=== PATIENT | female | born 1995 | race Caucasian/White ===

== ENCOUNTER 2022-02-12 14:09 | Outpatient (CLI) | payer OTHER, SELFPAY ==
[2022-02-13 11:58] LABS: Strep B DNA Probe NEGATIVE (Negative)
== END 2022-02-12 14:10 | disposition home or self-care (01) ==
LOC: NFLDREF 14:09
PROVIDERS: PCP Family Medicine; Visit Provider Advanced Practice Midwife
DX: Z34.90 Encounter for supervision of normal pregnancy, unspecified, unspecified trimester (principal)
CPT/HCPCS: 87081; 87653

== ENCOUNTER 2022-03-20 14:12 | Outpatient (CLI) | payer OTHER, SELFPAY ==
[2022-03-20 14:28] VITALS: BP 130/79; PULSE 83; PULSE 85; TEMP 36.7; O2SAT 96
[2022-03-20 14:30] VITALS: BP 130/79; PULSE 87; RESP 14; TEMP 36.7; O2SAT 96
[2022-03-20 15:10] LABS: Amnisure Rom* Negative
--- NOTE | 2022-03-20 15:59 | PC.OBNST ---
NST Note NST Note Start: 03/20/22 14:16 Freq: ONCE Status: Active Protocol: Document 03/20/22 15:15 LP (Rec: 03/20/22 15:57 LP [id number]) NST Note 1 Para (# of births) 0 EDC 03/11/22 Gestational Age In Weeks & Days 41 Weeks & 2 Days Patient Presented with Complaint(s) of Other Other Complaints Sent over from clinic for NST and amnisure after 12/20 BPP and questionable SROM Reactive Yes Appropriate for Gestational Age Yes AMAURY Romero, RN Date 03/20/22 Reactive Yes Appropriate for Gestational Age Yes AMAURY Gtz, AMAURY Date 03/20/22 OB NST charge Yes Complete NST Note via Write Note Yes The provider's electronic signature indicates the NST is reactive/appropriate for gestational age. *Note to provider: If an addendum is required, open the patient's chart and click on the note under the Nurse/Allied Health tab.
--- NOTE | 2022-03-20 17:33 | W.PM.OBO ---
OB Outpatient HPI History of Present Illness History of Present Illness: Darlin is a 26 year old at 41 2/7 weeks gestation by LMP, [place] 03/11/2022, presents from clinic for rule out SROM and NST following BPP of 12/20. Baby moving naturally: Yes Bleeding: No Contractions: No Leaking fluid: Yes ([place] tinged discharge) Discharge: No Heartburn: No Back pain: No Meds Home Medications and Allergies Home Medications Medication Instructions Recorded Confirmed Type aspirin 81 mg tablet,delayed mg PO QDAY 01/17/22 03/12/22 History release epinephrine 0.3 mg/0.3 mL 0.3 mg IM .As Needed as needed PRN 01/17/22 03/12/22 History injection, auto-injector (EpiPen) prenat.vits,barbara,[id number] 1 tab PO QDAY 01/17/22 03/12/22 History Allergies Allergy/AdvReac Type Severity Reaction Status Date / Time chaudhry Allergy Severe Swelling Uncoded 03/12/22 12:56 of Lip/Tongue/Throat [facility] Medical History (Updated 03/20/22 @ 18:02 by Clarisa Jones CNM) Anxiety Migraines Pollen-food allergy Surgical History History of wisdom tooth extraction Family History (Updated 02/19/22 @ 13:29 by Clarisa Jones CNM) Mother Multiple sclerosis Father No problems noted. Social History Smoking Status: Never smoker History History 1 Elective abortions Para 0 Spontaneous abortions Hx # Term Pregnancies Ectopic pregnancies Hx # Pregnancies Multiple births Number of Living Children 0 OB - H&P: Exam Physical Exam Vital signs: Temp Pulse Resp BP Pulse Ox 98.1 F 87 14 130/79 96 03/20/22 14:30 03/20/22 14:30 03/20/22 14:30 03/20/22 14:30 03/20/22 14:30 Constitutional Constitutional: no acute distress Routine HEENT Exam Head: Present atraumatic Routine Neck Exam Neck: Present full ROM Detailed Labor and Delivery Exam Patient Gravid: yes Dilation (cm): 3 Effacement (%): 70 Cervix position: mid Consistency: soft Tachysystole: No Contraction intensity: Mild Comments: Membrane sweep with consent. Good bloody show. Fetus (Single) Station: -2 Heart Rate Baseline: 145 Monitor Accelerations: Present Monitor Decelerations: None Temporary Help Agency Referral Clerk Variability: Moderate (11-25) Routine Skin Exam Present intact Routine Neurological Exam Present alert and oriented X3 Routine Psychiatric Exam Present normal affect Labs Labs Laboratory Tests 03/20/22 Range/Units 14:29 Membrane Rupture Negative Assessment and Plan Assessment and plan (1) Post term : Status: Acute (2) Vaginal discharge during : Status: Acute Plan ASSESSMENT:? 26 at 41 2/7 weeks gestation? BPP w/ Reactive NST, score 8/10 Amnisure negative ? PLAN:? Discussed options with patient including IOL today, discharge and IOL later this week if no labor, or follow-up w/ NST in clinic. She elects IOL later this week. Membrane sweep today. IOL scheduled of Saturday03/23/22.
== END 2022-03-20 15:20 | disposition home or self-care (01) ==
LOC: OB OUT 14:13 → OB 14:15
PROVIDERS: PCP Family Medicine; Visit Provider Advanced Practice Midwife
DX: O48.0 Post-term pregnancy (principal)
CPT/HCPCS: 59025; 76819; 84112; 99213

== ENCOUNTER 2022-03-21 16:11 | Inpatient (IN) | payer OTHER, SELFPAY ==
[2022-03-21] VITALS (40 sets, daily range): BP systolic 85–134; BP diastolic 49–74; PULSE 66–92; RESP 16–20; TEMP 36.8–37.1; O2SAT 94–100; BMI 36.3
--- NOTE | 2022-03-21 15:49 | P.LDBA_ITS ---
Subjective History of Present Illness Narrative: Patient is being admitted to Labor and Delivery for early labor post term. She is a 26 year old at 41.3 weeks gestation. Her full history and physical was dictated by Jonny Jones CNM on 02/19/2022. Please see this for details. She present after having contractions that started around 0200 this morning. They intensified until about 0700 when they decreased in frequency. They gradually increased again and she present to L&D around 1300. At that time she was 4 cm/80%/-2. At 1500 she was 4-4.5cm/80%/-2. Options were reviewed with patient including laboring at home with or without morphine and Vistaril before discharge, reevaluated SVE in 1-2 hours, admit with pain and relaxation interventions and/or labor augmentation. She is choosing to be admitted. She would like to try hydrotherapy for relaxation at this time. : [place]. Baby: Girl. blood type:?O positive GBS negative 1. BMI 33.9. Recommended baby ASA d/t nullip and obesity 2. Genetic screening: Declined 09/04/21 3. First US: anechoic structure on left ovary (?cyst measuring 3.7 x 2.4 x 2.7 cm), JULIOCESAR inferier to GS (1.0 x 1.1 x 1.2 cm) 4. Possible Raynaud's.? Diagnosed at 17 weeks.? Recommend keeping hands warm.? If no improvement, will consider CCB. 5.? 10/25/2021:? On FAS:? Single left ventricular echogenic focus in the heart.? No other anatomic abnormalities were identified. ? --offered maternity 21 and level 2 ultrasound, the patient and her spouse declined. 6. Large for dates Growth ultrasound 01/04/2022:? SDP 6.4 cm, estimated weight 64th percentile. 7. Hx of Anxiety, no medications 8. Hx of migraines OB - H&P: Exam Physical Exam: Vital signs: Temp Pulse Resp BP 98.2 F 66 20 134/74 03/21/22 13:07 03/21/22 13:07 03/21/22 13:07 03/21/22 13:07 Constitutional: Constitutional: no acute distress Routine HEENT Exam: Head: Present normal inspection ENT: Present normal exam Routine Neck Exam: Neck: Present full ROM Routine Respiratory Exam: Respiratory: Present CTA bilaterally Routine Cardiovascular Exam: Cardiovascular: RRR Detailed Labor and Delivery Exam: Patient Gravid: yes Dilation (cm): 4 (4- 4.5 per RN exam) Effacement (%): 80 Cervix position: mid Contraction frequency (min): 3 (Q2-4 min) Tachysystole: No Contraction intensity: Moderate Fetus (Single): Station: -2 Heart Rate Baseline: 135 Monitor Accelerations: Present (frequent long accelerations. baby very active per pt report and palpation) Monitor Decelerations: None Diabetic Educator Variability: Moderate (11-25) (6-25) Routine Extremities Exam: Extremities: Present full ROM Routine Back/Spine/Pelvis Exam: Back/Spine: full ROM Routine Neurological Exam: Present alert and oriented X3 Routine Psychiatric Exam: Present normal affect and normal thought process OB - Problem Based A/P Additional Plan (1) Post term at 41 weeks gestation: Status: Acute Plan at 41.3 weeks gestation? GBS negative Uncomplicated ? ?? PLAN:? 1. Candidate for analgesia of choice. Planning unmedicated .?? 2. Anticipate ? 3. Expectant management at this time.? 4. IV when needed per unit policy 5. Intermittent monitoring at this time or per unit policy Delivery/Labor/Induction Plan Plan: expectant management
[2022-03-21 17:35] LABS: SARS PCR* Negative SARS-CoV-2 (Negative)
[2022-03-21] MEDS: LIDOCAINE 2% (PF) 5 ML VIAL EPIDURAL (18:51)
[2022-03-21] MEDS: ROPIVACAINE 0.2% 100 ml 100 ML 12 MG EPIDURAL (18:52)
[2022-03-21] MEDS: LACTATED RINGERS 1000 ML 1,000 ML 125 ML IV (18:55)
--- NOTE | 2022-03-21 19:04 | PM.ANBPRC ---
[facility] Medical History (Updated 03/21/22 @ 16:11 by Samreen Samaniego CNM) Anxiety Migraines Pollen-food allergy Surgical History History of wisdom tooth extraction Family History (Updated 02/19/22 @ 13:29 by Clarisa Jones CNM) Mother Multiple sclerosis Father No problems noted. Social History Smoking Status: Never smoker Meds Home Medications and Allergies Home Medications Medication Instructions Recorded Confirmed Type aspirin 81 mg tablet,delayed 81 mg PO QDAY 01/17/22 03/21/22 History release epinephrine 0.3 mg/0.3 mL 0.3 mg IM .As Needed as needed PRN 01/17/22 03/21/22 History injection, auto-injector (EpiPen) prenat.vits,barbara,[id number] 1 tab PO QDAY 01/17/22 03/21/22 History Allergies Allergy/AdvReac Type Severity Reaction Status Date / Time chaudhry Allergy Severe Swelling Uncoded 03/12/22 12:56 of Lip/Tongue/Throat Results Labs Labs: Laboratory Results - last 24 hr 03/21/22 16:00 SARS-CoV-2 (PCR) Negative SARS-CoV-2 Vital Signs Vital Signs: Last Vital Signs Temp 98.2 F 03/21/22 13:07 Pulse 78 03/21/22 18:59 Resp 20 03/21/22 13:07 BP 117/63 03/21/22 18:59 Pulse Ox 97 03/21/22 19:02 Weight: 108.4 kg Height: 172.72 cm Anesthesia Procedures Epidural Insertion Patient Location: OB Start Time: 18:00 Stop Time: 19:00 Start Date: 03/21/22 Stop Date: 03/21/22 Reason for Block: primary anesthetic Patient Position: sitting Performed By: Gamaliel Whelan Preanesthetic Checklist: IV checked, risks and benefits discussed, surgical consent, monitors and equipment checked, pre-op evaluation, timeout performed and anesthesia consent Prep: chlorhexidine gluconate Monitoring: blood pressure monitoring, conveyor monitor, continuous pulse oximetry and heart rate Approach: midline Vertebral Space: lumbar (1-5) Needle Type: Tuohy needle Injection Technique: continuous catheter Needle gauge: 17 Needle Length (cm): 10 cm Needle Insertion Depth (cm): 6 Catheter Gauge: 19 Catheter Type: multi-orifice Catheter at skin depth (cm): 12 Test Dose Result: negative and lidocaine 1.5% with epinephrine 1 to 200,000 Events: other
[2022-03-21] MEDS: PHENYLEPHRINE 100 MCG/ML SYRINGE IVP (21:19)
[2022-03-22] VITALS (72 sets, daily range): BP systolic 89–142; BP diastolic 49–86; PULSE 60–142; RESP 16; TEMP 36.6–37.2; O2SAT 97
[2022-03-22] MEDS: LACTATED RINGERS 1000 ML 1,000 ML 125 ML IV ×2 (02:43→10:27)
[2022-03-22] MEDS: ROPIVACAINE 0.2% 100 ml 100 ML 12 MG EPIDURAL ×2 (02:49→10:54)
--- NOTE | 2022-03-22 06:24 | PM.OBPNL ---
Pain Control Date Seen: 03/22/22 Pain control: tolerating well and epidural Comments: Patient had declined offer of Pitocin or AROM augmentation over night. Contractions had spaced apart to every 4-6 min. She is comfortable with an epidural and has been able to rest. SVE this morning is pretty much unchanged at 7-8cm from the evening check of 7 cm. Offered Pitocin or AROM augmentation again and she is agreeable to Pitocin augmentation. Contractions Monitor mode: External Contraction frequency: 4 (Q4-6 min) Contraction pattern: Regular Contraction intensity: Moderate Pelvic Exam Dilation (cm): 7-8 Effacement (%): 90 Station: -1 Fetus (Single) status: Category l Comments: Baseline 130, +accels, -decels, moderate variability Assessment and Plan Plan: begin Pitocin augmentation
[2022-03-22] MEDS: OXYTOCIN 30 unit/500 ML in NS 30 UNIT/500 ML BAG IVPB (06:36)
--- NOTE | 2022-03-22 09:39 | PM.OBPNL ---
Pain Control Date Seen: 03/22/22 Pain control: tolerating well and epidural Comments: Darlin is coping well with labor pain/contractions. She is currently being supported by her . Understands the current plan of care. Questions answered to her satisfaction. Reports concerns regarding: none. She would like to continue with epidural for comfort and pain management.?? Contractions Monitor mode: External Contraction frequency: 4 (Q4-6 min) Contraction pattern: Regular Contraction intensity: Moderate Pelvic Exam Comments: Last check was 7-8 cm. Pitocin started at 630 am. Fetus (Single) status: Category l Comments: Intact membranes Assessment and Plan Assessment: active labor Comments: ASSESSMENT:? 26 at 41 1/7 weeks gestation? complicated by:? Labor type: Spontaneous, Augmented, Active labor? Category 1 FHR pattern.?? Labor complicated by: Protracted Active phase. ? GBS neg? ? PLAN:? 1. Routine intrapartum cares as ordered. Continue with augmentation with Pitocin per protocol. 2. Monitoring per policy, continuous? 3. Epidural in place, continue for labor pain management. 4. Patient encouraged to reposition to promote physiologic labor and .? 5. Anticipate ?
--- NOTE | 2022-03-22 10:55 | PM.OBPNL ---
Pain Control Time Seen by Provider: 10:56 Date Seen: 03/22/22 Pain control: epidural Comments: Intrapartum Progress Note? Labor and Delivery? ? Subjective: Darlin is coping well with labor pain/contractions, with an epidural. Pt is a little anxious, awating the of her baby. She is currently being supported by Arron. Understands the current plan of care. Questions answered to her satisfaction. She would like to continue with epidural for comfort and pain management.?? Contractions Monitor mode: External Contraction frequency: 4 (Q4-6 min) Contraction pattern: Regular Contraction intensity: Moderate Pelvic Exam Dilation (cm): 8 Effacement (%): 90 Station: -1 Comments: Right sided cervix, bulging bag. AROMed with consent. Clear fluid. Fetus (Single) Amniotic Membrane Status: AROM status: Category l Assessment and Plan Pitocin rate (mU/min): 5 Assessment: active labor Plan: continue present management Comments: ASSESSMENT:? 26 at 41 1/7 weeks gestation? complicated by:? Labor type: Spontaneous, Augmented, Active labor? Category 1 FHR pattern.?? Labor complicated by: Protracted Active phase. ? GBS neg? ? PLAN:? 1. Routine intrapartum cares as ordered. Continue with augmentation with Pitocin per protocol. AROM discussed with pt, agreeable at this time. Clear fluid. 2. Monitoring per policy, continuous? 3. Epidural in place, continue for labor pain management. 4. Patient encouraged to reposition to promote physiologic labor and .? 5. Anticipate ?
[2022-03-22] MEDS: LIDOCAINE 1% MDV 20 ML INJECTION (16:53)
--- NOTE | 2022-03-22 17:49 | PM.OBPRCVD ---
Procedure Delivery date: 03/22/22 Procedure Done: Global Events: Other (Post term 41w 4d) Intrapartal Events: Labor Augmentation, Prolonged 2nd Stage >2.5 Hrs and Other (Protracted active phase) Delivery augmentation: rupture of membranes (clear fluid) and pitocin Delivery monitor: external FHT Route of delivery: Laceration description: Perineal - 2nd Degree (extends up right labia) Delivery repair: Vicryl (3.0 ) Estimated blood loss (mL): 812 (QBL) Anesthesia type: Epidural Disposition: floor Narrative: The patient is a 26 year-old G1 now P1 admitted on 03/21/2022 at 41 Weeks, 3 Days gestation for active labor.? Labor Analgesia:?Epidural ? Pitocin:? Yes for augmentation and AMSTL ? Labor onset:? 03/21/2022 @ 1600 ? Complete:? 03/22 @ 1310 ? Pushing:? 03/22 @ 1310 ? heart tones during second stage were Cat 1 with occasional Cat 2. ? Patient was admitted for active labor and progressed with augmentation. AROM at 1050 with clear fluid. Patient was complete at 1310 and pushing at 1310. of a viable female at 1640 in right tilt. Vertex delivered OA. No nuchal cord. Head slow to deliver, immediate concern for shoulder, not palpated, [place] and Superpubic pressure done to resolve shoulder dystocia of 40 seconds. Traction needed to deliver body. passed to mothers abdomen with a vigorous cry. Cord was clamped and cut at > 5 minutes. APGARS were 7 at one minute and 9 at five minutes respectively. Mouth was bulb suctioned. Intact placenta with a 3 vessel cord delivered spontaneously at 1649. Fundus firm. 2nd degree identified and repaired in typical fashion. QBL 812 cc, likely most from repair, some may be diluted from amniotic fluid. Mother and baby stable; mother plans to breastfeed. weight 10 lbs. Placenta delivered spontaneously and complete at 1649 with a 3 vessel cord. ? Mother and were stable after delivery. ? Lacerations:? 2nd degree perineal, repaired with 3.0 Vycril. ? Blood loss: 812 mL. Blood loss measurement type: QBL ? Sponge and needles counts are correct. [place] Infant Gender: Female presentation: vertex Placental Delivery Description: Spontaneous Cord Description: 3 Vessels total score - 1 minute: 7 total score - 5 minute: 8 OB Vag Delivery Procedures Additional Procedures ECV: No Cook Catheter Insertion: No NST: No D&C: No Laceration Repair: Yes Tubal Ligation : No Other: No
--- NOTE | 2022-03-22 18:26 | PM.OBPNL ---
Pain Control Time Seen by Provider: 13:00 Date Seen: 03/22/22 Pain control: epidural Comments: Darlin doing well with epidural, feeling urge to push. Slight anterior right lip felt with exam, attempted 2 practice pushes to see if it would retract. Unable to reduce, discussed high fowlers, pt agreeable. Contractions Monitor mode: External Contraction frequency: 2 (Q4-6 min) Contraction pattern: Regular Contraction intensity: Strong/Firm Pelvic Exam Dilation (cm): 9.5 Effacement (%): 100 Station: 0 Fetus (Single) Amniotic Membrane Status: AROM status: Category l Assessment and Plan Assessment: active labor Plan: continue present management Comments: ASSESSMENT:? 26 at 41 1/7 weeks gestation? complicated by:? Labor type: Spontaneous, Augmented, Active labor? Category 1 FHR pattern.?? Labor complicated by: Protracted Active phase. ? GBS neg? ? PLAN:? 1. Routine intrapartum cares as ordered. Continue with augmentation with Pitocin per protocol. High fowlers position, having intense urge to push. Pushing started with RN. [place] slight anterior cervix which was able to be retracted with pressure while pushing. 2. Monitoring per policy, continuous? 3. Epidural in place, continue for labor pain management. 4. Patient encouraged to reposition to promote physiologic labor and .? 5. Anticipate ?
[2022-03-22] MEDS: ONDANSETRON 2 MG/ML inj 4 MG IV (19:52)
[2022-03-22] MEDS: LACTATED RINGERS 1000 ML 1,000 ML 500 ML IV (19:52)
[2022-03-23 00:29] VITALS: BP 130/73; PULSE 92; RESP 16; TEMP 37; O2SAT 97
[2022-03-23 03:30] VITALS: BP 109/71; PULSE 88; RESP 16; TEMP 37; O2SAT 97
[2022-03-23] MEDS: IBUPROFEN 600 MG TABLET PO ×3 (04:05→17:20)
[2022-03-23] MEDS: LANOLIN CREAM 1 APPLIC TOPICAL (04:07)
[2022-03-23 07:34] LABS: Hemoglobin* 11.6 gm/dL (12.0-16.0)
--- NOTE | 2022-03-23 07:51 | P.OBPN_ITS ---
OB - PN:Subj Subjective Date Seen: 03/23/22 Patient comments OB post-: no complaints, pain well controlled, tolerating diet and flatus present [place] status: and doing well [place] feeding status: exclusively Narrative: Day 1:? Vaginal Delivery at 41 and 4/7 weeks.? ?? Complications:? non? The patient feels well.? The pain is well controlled with current medications.? She has no new complaints.? Urinary output is adequate and she is voiding without difficulty.? Has a good appetite, is tolerating a general diet, is passing flatus, and has not had a bowel movement.? Has?small amount of rubra lochia.? She is and feels that it is going good. She is ambulating well.? OB - PN: Obj Exam Physical Exam: Vital signs: Temp Pulse Resp BP Pulse Ox O2 Del Method 98.6 F 88 16 109/71 97 03/23/22 03:30 03/23/22 03:30 03/23/22 03:30 03/23/22 03:30 03/23/22 03:30 03/23/22 03:30 Constitutional: Constitutional: no acute distress Routine HEENT Exam: Head: Present normal inspection Eye: Present normal appearance Routine Neck Exam: Neck: Present full ROM Routine Respiratory Exam: Respiratory: Present CTA bilaterally Routine Cardiovascular Exam: Cardiovascular: Present RRR Routine Abdominal Exam: Fundus: Present firm Routine Exam: Patient deferred: external exam (denies concerns) and perineal exam Routine Back/Spine/Pelvis Exam: Back/Spine: Present full ROM Routine Neurological Exam: Neurological: Present alert and oriented X3 Routine Psychiatric Exam: Psychiatric: Present normal affect and normal thought process OB - PN: Obj Data Labs Labs: Laboratory Results - last 24 hr 03/23/22 07:05 Hgb 11.6 L OB - PN: A/P Vaginal Delivery Assessment and Plan (1) Post term at 41 weeks gestation: Status: Acute Plan 26 year old on day 1.? 1. Routine cares.? 2. Anticipate discharge tomorrow.? Plan day: 1 Plan: routine care
[2022-03-23] MEDS: DOCUSATE SODIUM 100 MG CAPSULE PO (07:57)
[2022-03-23 07:59] VITALS: BP 107/73; PULSE 78; RESP 15; TEMP 36.4
[2022-03-23 14:30] VITALS: BP 104/67; PULSE 79; RESP 16; TEMP 36.6
[2022-03-23 23:17] VITALS: BP 114/76; PULSE 79; RESP 16; TEMP 36.6; O2SAT 97
[2022-03-23] MEDS: ACETAMINOPHEN 500 MG TABLET 1000 MG PO (23:20)
[2022-03-24 07:57] VITALS: BP 116/76; PULSE 69; RESP 16; TEMP 36.3; O2SAT 98
[2022-03-24] MEDS: IBUPROFEN 600 MG TABLET PO (08:02)
[2022-03-24] MEDS: DOCUSATE SODIUM 100 MG CAPSULE PO (08:03)
[2022-03-24] MEDS: ACETAMINOPHEN 500 MG TABLET 1000 MG PO (10:20)
--- NOTE | 2022-03-24 11:50 | PM.OBDSVD1 ---
DS: Providers Provider Time Seen by Provider: 11:51 Date Seen: 03/24/22 Date of admission: 03/21/22 16:11 Primary care physician: Adelaide Dewey MD Admitting Clinician: Samreen Samaniego CNM Attending Physician on discharge: David Salas MD Date of Discharge: 03/24/22 DS: Diagnosis Discharge Diagnosis (1) Post term at 41 weeks gestation: Status: Acute (2) Perineal laceration during delivery, condition: Status: Acute Exam Const: Vital Signs, click to edit/add: Vital Signs - 24 hr 03/23/22 14:30 03/23/22 23:17 03/24/22 07:57 Temperature 97.9 F 97.9 F 97.4 F L Pulse Rate [Pulse Oximeter] 79 79 69 Respiratory Rate 16 16 16 Blood Pressure [Le ft Arm] 104/67 114/76 116/76 Pulse Oximetry 97 98 Oxygen Delivery Me thod Room Air Room Air Documenting provider has reviewed patient's vital signs: yes Common normals: no apparent distress, healthy appearing and well nourished General appearance: cooperative, comfortable, well kempt and well developed Nutritional appearance: obese HENMT: Common normals: normocephalic Head and scalp: normocephalic Neck & C-Spine: Common normals: full ROM General: normal visual inspection Resp: Common normals: normal respiratory effort Effort & inspection: able to speak in complete sentences Cardio: Common normals: regular rate Rate: regular rate GI: Common normals: soft to palpation Palpation: soft Extremity: Common normals: normal to inspection Neuro: Common normals: CN's II-XII intact bilaterally Psych: Common normals: mental status grossly normal, cooperative and affect normal Appearance: well kempt Attitude: calm OB - DS: Summary Hospital Course Hospital Course: Darlin is a 26 year old now P 1001 who was admitted to the Center on 03/21/22 for IOL for postdates, and 6/8 BPP (no gross movement). She had AROM and Pitocin, with epidural for pain relief. On 03.22.2022, she gave to a viable female Lindsay by vaginal delivery. Baby weighed 10lb 0oz at . A second degree perineal laceration was repaired. QBL was 812mL. the patient has done well. Pain is controlled with ibuprofen and acetaminophen. Lochia is moderate, and decreasing. Bladder and bowel functions are normal. Her mood is stable. Baby is well. Peripartum Data complications: none Gender: Female Discharge Plan: Home Status at Discharge Functional status at discharge: independent ambulation Overall status at discharge: patient is progressing back to baseline Discharge Plan Discharge Disposition: Home, Self-Care Date of Admission: 03/21/22 16:11 Attending Provider on Discharge: David Salas Primary Care Provider: Adelaide Dewey Condition: Stable Anticipated Discharge Date/Time: 03/24/22 12:02 Discharge Medications: New acetaminophen 500 mg Tablet 1,000 mg PO Q6H PRN (Reason: pain refractory to ibuprofen) Qty: 1 0RF ibuprofen 600 mg Tablet 600 mg PO Q6H PRNQty: 1 0RF Lanolin (HPA) 100 % Cream 1 applic topical Q1H PRNQty: 7 0RF pramoxine 1 % Foam 1 applic topical QID PRNQty: 15 0RF Continued prenat.vits,barbara,[id number] Tablet 1 tab PO QDAY epinephrine [EpiPen] 0.3 mg/0.3 mL auto-injector 0.3 mg IM .As Needed as needed PRN Discontinued aspirin 81 mg tablet,delayed release (DR/EC) 81 mg PO QDAY Discharge Orders: Discharge Order (Routine); Ordered 03/24/22 Ordered By: David Salas Patient Education: OB Over the Counter Medication Information, OB Vaginal/Breast Feeding Activity Level: Activity as Tolerated Discharge Diet: High Fiber Follow Up Appointments: Adelaide Dewey MD [Primary Care Provider] - Forms: Hello! Messenger Info Instructions Discharge Comments: follow up at [facility] as needed, and for routine visit with CNM in approximately 6w
== END 2022-03-24 13:35 | disposition home or self-care (01) | DRG 807 ==
LOC: OB OUT 16:14 → OB 16:14
PROVIDERS: Advanced Practice Midwife; Admitting Provider Advanced Practice Midwife; PCP Family Medicine; Visit Provider Advanced Practice Midwife
DX: O48.0 Post-term pregnancy (principal); Z37.0 Single live birth; O66.0 Obstructed labor due to shoulder dystocia; O36.63X0 Maternal care for excessive fetal growth, third trimester, not applicable or unspecified; O70.1 Second degree perineal laceration during delivery; Z3A.41 41 weeks gestation of pregnancy
CPT/HCPCS: 01967; 36415; 85018; 87635; 99213; A9270; J2370; J2405; J2795; J3010; J7120

== ENCOUNTER 2022-03-30 11:03 | Outpatient (CLI) | payer OTHER, SELFPAY ==
--- NOTE | 2022-03-30 14:03 | P.LACCB_ITS ---
Consult Note - Mom Date of Visit Date of visit: 03/30/22 automotive consultant: Kari Aramubla Visit Code: Visit Patient's Information Phone number: [phone] : 1 Para: 1 Allergies chaudhry Allergy (Severe, Uncoded 03/12/22 12:56) Swelling of Lip/Tongue/Throat Mother's Medical History: Medical History (Updated 03/28/22 @ 00:01 by ) Anxiety Migraines Pollen-food allergy Post term at 41 weeks gestation Delivery Information Delivery type: Vaginal Weeks Gestation: 41.4 Gestational Age: LGA Weight: 4.536 kg Discharge Weight: 4.284 kg Baby's Information Baby's Age at Visit: 8 days Baby's Provider or Clinic: Dr. Anderson Jaundice: No Reason for Consult Reason for Consult: painful latch Past Experience Past Experience: No Current Frequency of Day Feedings: every 2 hours Frequency of Night Feedings: every 3 hours Both Breasts: No (mom hasn't been nursing for about 5 days d/t the pain) Pumping Pumping: Yes (every feeding) Quantity Pumped: 2 - 3 oz total each time Supplementing EMB Supplement: Yes (POC are giving baby 2 - 3 oz every 2 - 3 hours) Formula Supplement: No Baby Elimination Number of Wet Diapers a Day: 7 - 8 Number of BM a Day: 7 - 8; yellow and seedy Breast/Nipple Condition Breast Information: WNL Engorgement: No Maternal Nipple Condition - Left: Common Nipple Maternal Nipple Condition - Right: Common Nipple Sore Nipples: Yes Onsite Pre-Feed weight: 4.26 kg Post-Feed weight: 4.314 kg Milk Transferred (mL): 54 Pre-Nursing Left Nipple: Within Normal Limits Pre-Nursing Right Nipple: Within Normal Limits Post-Nursing Left Nipple: Within Normal Limits Post-Nursing Right Nipple: Within Normal Limits Assessments/Interventions Assessments/Interventions: Met with mom and this now 8 day old ex- term LGA baby for consult. Mom reports she was nursing for the first 3- 4 days of baby's life but it became so painful that she stopped and started exclusively pumping. POC report at baby's NB visit on 03/27 they were instructed to start feeding her every 2 hours during the day and every 3 hours at night d/t continued weight loss from D/C. Baby has been taking 2 oz EBM with every feeding and recently started taking closer to 3 oz; POC are paced feeding. Mom is pumping with a Spectra pump with every feeding and gets 2 - 3 oz total each time. She denies any pain using the pump. Breasts are WNL- symmetrical with rounded lower quadrants. Nipples are everted and don't flatten or retract on compression;no damage noted but mom states they are sore. Reports the pain is at the nipple and doesn't radiate up into the breast. Baby has gained 31 grams/day since her visit on 03/27 and is now 6 % below BW at DOL 8 (up from 8%). Parents report shoulder dystocia at delivery and that she prefers looking to her right. They report equal ROM when she's moving her extremities. Baby's upper frenulum is tight and the lower frenulum appears to be quite posterior. Her palate is WNL and she has a strong suck on finger, but alternates with some sucking and some biting down which mom reports she feels on the breast. Her tongue easily extends past the gumline, but seems a little restricted with lateral movement. Mom attempted to latch baby in the football hold on the right and was in a lot of pain. With coaching to move her fingers away from the areola, exaggerate pointing her nipple to nose, and bring baby quickly to her when she opened wide she was able to get a deeper and more comfortable latch after several attempts. There was also some improvement when baby's lips were flanged. Baby got sleepy after 10 - 15 minutes and was switched to the left in the cross cradle position. Using the ideas to get a wide latch, mom was able to get her comfortably on the breast without assistance. Some clicking was noticed, but it wasn't consistent. Baby nursed about another 10 minutes and transferred 54 ml. Baby unlatched a few times at the beginning of the feeding on both sides and it appears to be d/t mom's let-down. Reviewed with mom that she can hand express or use the [place] for a minute or so before nursing baby to see if this helps. Plan: 1. Nurse baby every 2 - 3 hours around the clock, offering both sides and using the ideas above to get a wide latch. 2. Pump to comfort after nursing if needed (or to empty if baby doesn't have a good feeding at the breast). 3. Supplement only if baby still seems hungry after nursing and mom doesn't want to put her back to breast. 4. F/U on 04/05 for 2 week [facility] and I will f/u by phone on 04/02 (could consider pediatric dental referral if no improvement/resolution of nipple pain). 5. Gave handouts on craniosacral therapist and chiropractors in town- discussed things POC can try at home to help increase baby's ROM. Also gave stretching handout for mom. Meds Home Medications and Allergies Home Medications Medication Instructions Recorded Confirmed Type epinephrine 0.3 mg/0.3 mL 0.3 mg IM .As Needed as needed PRN 01/17/22 03/21/22 History injection, auto-injector (EpiPen) prenat.vits,barbara,[id number] 1 tab PO QDAY 01/17/22 03/21/22 History Allergies Allergy/AdvReac Type Severity Reaction Status Date / Time chaudhry Allergy Severe Swelling Uncoded 03/12/22 12:56 of Lip/Tongue/Throat
== END 2022-03-30 11:04 | disposition home or self-care (01) ==
LOC: OB LAC 11:03
PROVIDERS: PCP Family Medicine; Visit Provider Advanced Practice Midwife
DX: Z39.1 Encounter for care and examination of lactating mother (principal)
CPT/HCPCS: 99211

== ENCOUNTER 2022-03-31 13:17 | Emergency (ER) | payer OTHER, SELFPAY ==
[2022-03-31 13:26] VITALS: BP 117/81; PULSE 106; RESP 18; TEMP 36.9; O2SAT 96; BMI 34.2
[2022-03-31 14:37] LABS: Basophils Absolute Auto 0.01 K/uL (0.00-0.30); Basophils Percent Auto 0.1 % (0.0-3.0); Eosinophils Absolute Auto 0.04 K/uL (0.00-0.50); Eosinophils Percent Auto 0.5 % (0.0-7.0); Hematocrit 36.3 % (33.0-51.0); Hemoglobin* 12.2 gm/dL (12.0-16.0); Immature Granulocytes Abs Auto 0.02 K/uL (0.00-0.30); Mean Corpuscular HGB Conc 34 gm/dL (32-36); Mean Corpuscular Hemoglobin 30 pg (26-34); Mean Corpuscular Volume 90 fL (80-100); Monocytes Percent Auto 8.7 % (0.0-11.0); Neutrophils Percent Auto 80.4 % (42.0-72.0); Platelet Count* 283 K/uL (140-440); RDW Coefficient of Variation % 12.2 % (11.5-15.5); Red Blood Count 4.03 m/uL (4.00-5.20); White Blood Count* 7.62 K/uL (4.50-11.00)
[2022-03-31] MEDS: IBUPROFEN 400 MG TABLET 800 MG PO (14:37)
[2022-03-31 14:53] LABS: Albumin* 3.6 g/dL (3.3-5.0)
[2022-03-31 14:54] LABS: Chloride* 107 mmol/L (96-114); Potassium* 3.3 mmol/L (3.6-5.1); Sodium* 136 mmol/L (135-149)
[2022-03-31 14:56] LABS: Aspartate Amino Transferase* 21 U/L (12-35); Bilirubin Total* 0.3 mg/dL (0.1-1.5); Carbon Dioxide* 22 mmol/L (20-32); Creatinine* 0.8 mg/dL (0.5-1.5); Est. Creatinine Clearance* 106.56; Estimated Glomerular Filt Rate 104 ml/min; Total Protein* 6.4 g/dL (6.0-8.3)
[2022-03-31 14:57] LABS: Alanine Aminotransferase* 15 U/L (4-35); Alkaline Phosphatase* 113 U/L (40-150); Blood Urea Nitrogen* 9 mg/dL (5-24); Calcium* 8.3 mg/dL (8.4-10.6); Glucose* 112 mg/dL (60-115)
--- NOTE | 2022-03-31 15:04 | ED_ITS ---
HPI - General Adult General Chief complaint: Fever Stated complaint: Fever 9d Post Time Seen by Provider: 03/31/22 13:44 History of Present Illness HPI narrative: Darlin is a 26yo s/p with 2nd degree laceration on 03/22 of a viable female who presents with complaints of fever of 100.8 one day prior to presentation. She reports an uneventful and period up to this point. She denies cough, congestion, sore throat, or change in bowel/urinary habits. She reports her lochia is decreasing. She denies foul odor or discharge, apart from lochia. She reports some abdominal pain, described as aching diffusely in her abdomen. She denies chest pain, but she reports some shortness of breath noted over the last 1-2 days. She has had no known exposure. She is tolerating p.o. intake, voiding, and stooling normally. Related Data Home Medications Medication Instructions Recorded Confirmed epinephrine 0.3 mg/0.3 mL 0.3 mg IM .As Needed as needed PRN 01/17/22 03/21/22 injection, auto-injector (EpiPen) prenat.vits,barbara,[id number] 1 tab PO QDAY 01/17/22 03/21/22 Previous Rx's Medication Instructions Recorded acetaminophen 500 mg tablet 1,000 mg PO Q6H PRN pain 03/24/22 refractory to ibuprofen #1 tab ibuprofen 600 mg tablet 600 mg PO Q6H PRN #1 tab 03/24/22 modified lanolin 100 % topical 1 applic topical Q1H PRN #7 grams 03/24/22 cream (Lanolin (HPA)) pramoxine 1 % topical foam 1 applic topical QID PRN #15 grams 03/24/22 clindamycin HCl 300 mg capsule 300 mg PO Q8H #15 caps 03/31/22 Allergies Allergy/AdvReac Type Severity Reaction Status Date / Time chaudhry Allergy Verified 03/31/22 15:58 Review of Systems Const: Denies: fever, chills, fatigue or malaise ENMT: Denies: throat pain or difficulty swallowing Cardio: Denies: chest pain or shortness of breath with exertion Resp: Denies: shortness of breath or cough GI: Reports: abdominal pain; Denies: nausea, vomiting, heartburn, diarrhea, constipation, bloating, belching, excessive passing of gas, difficulty swallowing, feeling full early, change in bowel habits or blood in stool : Denies: painful urination, urinary frequency, urinary urgency or blood in urine Neuro: Denies: headache Endo: Denies: excessive urination or fatigue [facility] Medical History (Updated 03/31/22 @ 16:43 by Alysia Hardin DO) Anxiety Migraines Pollen-food allergy Post term at 41 weeks gestation Surgical History History of wisdom tooth extraction Family History (Updated 02/19/22 @ 13:29 by Clarisa Jones CNM) Mother Multiple sclerosis Father No problems noted. Social History Smoking Status: Never smoker Do you use any of these nicotine containing products: None Second hand tobacco smoke exposure: No How often do you have a drink containing alcohol: never AUDIT-C Alcohol total score: 0 Non-prescribed substance use: denies use service: No Exam Const: Vital Signs, click to edit/add: Vital Signs - 24 hr 03/31/22 13:26 Temperature 98.5 F Pulse Rate [Right Pulse Oximeter] 106 H Respiratory Rate 18 Blood Pressure [Ri ght Upper Arm] 117/81 Pulse Oximetry 96 Oxygen Delivery Me thod Room Air Documenting provider has reviewed patient's vital signs: yes Common normals: no apparent distress, oriented x3, no limitations, healthy appearing, alert and well nourished General appearance: cooperative, comfortable and well developed; not in distress Orientation/consciousness: Yes awake, Yes oriented to person, Yes oriented to place and Yes oriented to time HENMT: Common normals: normocephalic and head/scalp atraumatic Head and scalp: normocephalic and atraumatic Face and sinus: normal facial exam (limited by masking) Eye: Common normals: EOMs intact bilaterally General eye: normal appearance of both eyes Resp: Common normals: normal respiratory effort, no retractions, no use of accessory muscles and clear to auscultation bilaterally Effort & inspection: able to speak in complete sentences Auscultation: clear to auscultation bilaterally Cardio: Common normals: regular rate, regular rhythm, S1 normal heart sound, S2 normal heart sound, no gallops, no clicks and no murmurs Rate: regular rate Rhythm: regular rhythm Heart sounds: S1 normal and S2 normal GI: Common normals: Normal to inspection, nondistended, normoactive bowel sounds present and soft to palpation Palpation: soft and tender Details: other (diffuse) : Common normals: no CVA tenderness Bladder/kidney exam: no CVA tenderness External Female Exam: normal appearance of the urethra Speculum exam - vagina: vaginal laceration (Well sutured with perineal tag noted) Back & Pelvis: Common normals: no CVA tenderness Extremity: Common normals: normal to inspection, full ROM and no clubbing, cyanosis or edema Neuro: Common normals: oriented x3, CN's II-XII intact bilaterally, moves all extremities, no focal motor deficits and no sensory deficits noted Sensorium/orientation: awake, alert, oriented to person, oriented to place and oriented to time Gait (neuro): normal gait Sensory exam: double simultaneous stimulation for sensation normal Motor exam: strength 5/5 throughout and no movement abnormalities noted Psych: Common normals: mental status grossly normal, thought process normal and speech normal Appearance: grossly normal Attitude: calm Activity/motor behavior: appropriate eye contact Speech: normal speech Thought process: normal thought process Thought content: normal thought content Attention/concentration: attention grossly intact Memory/cognition: memory grossly intact Insight: insight good Judgement: judgment good Skin: Common normals: no rashes or lesions noted General skin exam: no rashes or lesions noted Course Course Hospital Course: Darlin presented as noted for 1 day of fever approximately 9 days . Labs were ordered. She was given ibuprofen at her request for control of abdominal cramping/discomfort. Reevaluation(s) Reevaluation #1: Patient resting comfortably. She has received her ibuprofen. We are awaiting lab results. Time: 15:04 Reevaluation #2: Discussed need for CT for elevated DDimer. No h/o furosemide allergy, sulfa allergy, or previous contrast allergy. Patient reports to nursing staff on return a request for evaluation of her perineal stitches for concern of possible infection. Time: 15:53 Vital Signs Vital signs: Initial Vital Signs Temperature 98.5 F 03/31/22 13:26 Temperature Source Temporal Artery Scan 03/31/22 13:26 Pulse Rate 106 H 03/31/22 13:26 Respiratory Rate 18 03/31/22 13:26 Blood Pressure 117/81 03/31/22 13:26 Blood Pressure Mean 93 03/31/22 13:26 Blood Pressure Position Sitting 03/31/22 13:26 Pulse Oximetry 96 03/31/22 13:26 Oxygen Delivery Method 03/31/22 13:26 Vital Signs Temperature 98.5 F 03/31/22 13:26 Pulse Rate 106 H 03/31/22 13:26 Respiratory Rate 18 03/31/22 13:26 Blood Pressure 117/81 03/31/22 13:26 Pulse Oximetry 96 03/31/22 13:26 Oxygen Delivery Method 03/31/22 13:26 Temperature 98.5 F 03/31/22 13:26 Pulse Rate 106 H 03/31/22 13:26 Respiratory Rate 18 03/31/22 13:26 Blood Pressure 117/81 03/31/22 13:26 Pulse Oximetry 96 03/31/22 13:26 Oxygen Delivery Method 03/31/22 13:26 Medical Decision Making MDM Narrative Medical decision making narrative: During the evaluation of this patient consider multiple differential diagnosis considerations. The life-threatening differential diagnoses considered include: pulmonary embolism, mesenteric ischemia, bowel perforation, volvulus, and bowel obstruction. Other differential diagnoses include but are not limited to: wound infection, endometritis, pyelonephritis/UTI, diseases of the genitourinary system and reproductive system, as well as the other etiologies. Lab Data Labs: Lab Results 03/31/22 03/31/22 03/31/22 Range/Units 14:10 14:12 14:22 WBC 7.62 (4.50-11.00) K/uL RBC 4.03 (4.00-5.20) m/uL Hgb 12.2 (12.0-16.0) gm/dL Hct 36.3 (33.0-51.0) % MCV 90 (80-100) fL MCH 30 (26-34) pg MCHC 34 (32-36) gm/dL RDW Coeff of Raj 12.2 (11.5-15.5) % Plt Count 283 (140-440) K/uL Neut % (Auto) 80.4 H (42.0-72.0) % Lymph % (Auto) 10.0 L (20-44) % [place] % (Auto) 8.7 (0.0-11.0) % Eos % (Auto) 0.5 (0.0-7.0) % Baso % (Auto) 0.1 (0.0-3.0) % Neut # (Auto) 6.10 (1.7-7.0) K/uL Lymph # (Auto) 0.80 L (0.90-2.90) K/uL [place] # (Auto) 0.70 (0.00-0.90) K/UL Eos # (Auto) 0.04 (0.00-0.50) K/uL Baso # (Auto) 0.01 (0.00-0.30) K/uL Abs Immat Gran (auto) 0.02 (0.00-0.30) K/uL D-Dimer Quant (PE/DVT) (0.00-0.50) ug/ml Sodium (135-149) mmol/L Potassium (3.6-5.1) mmol/L Chloride (96-114) mmol/L Carbon Dioxide (20-32) mmol/L BUN (5-24) mg/dL Creatinine (0.5-1.5) mg/dL Estimated Creat Clear Estimated GFR ml/min Glucose (60-115) mg/dL Calcium (8.4-10.6) mg/dL Total Bilirubin (0.1-1.5) mg/dL AST (12-35) U/L ALT (4-35) U/L Alkaline Phosphatase (40-150) U/L Total Protein (6.0-8.3) g/dL Albumin (3.3-5.0) g/dL Urine Color Yellow (Yellow) Urine Appearance Clear (Clear) Urine pH 7.0 (5.0-8.5) Ur Specific [place] 1.010 (1.000-1.030) Urine Protein Negative (Negative) Urine Glucose (UA) Negative (Negative) Urine Ketones Negative (Negative) Urine Blood 3+ A (Negative) Urine Nitrite Negative (Negative) Urine Bilirubin Negative (Negative) Urine Urobilinogen 0.2 (0.2-1.0) Ur Leukocyte Esterase 1+ A (Negative) Urine RBC 0-2 (0-2) Urine WBC 5-10 A (0-5) Urine WBC Clumps Few A (None) Ur Squamous Epith Cells None (None-Few) Amorphous Sediment Few A (None) Urine Bacteria Few A (None) SARS-CoV-2 (PCR) Negative SARS-CoV-2 (Negative) Influenza Type A (PCR) Negative PCR FLU A (Negative) Influenza Type B (PCR) Negative PCR FLU B (Negative) RSV (PCR) Negative PCR RSV (Negative) 03/31/22 03/31/22 Range/Units 14:22 14:22 WBC (4.50-11.00) K/uL RBC (4.00-5.20) m/uL Hgb (12.0-16.0) gm/dL Hct (33.0-51.0) % MCV (80-100) fL MCH (26-34) pg MCHC (32-36) gm/dL RDW Coeff of Raj (11.5-15.5) % Plt Count (140-440) K/uL Neut % (Auto) (42.0-72.0) % Lymph % (Auto) (20-44) % [place] % (Auto) (0.0-11.0) % Eos % (Auto) (0.0-7.0) % Baso % (Auto) (0.0-3.0) % Neut # (Auto) (1.7-7.0) K/uL Lymph # (Auto) (0.90-2.90) K/uL [place] # (Auto) (0.00-0.90) K/UL Eos # (Auto) (0.00-0.50) K/uL Baso # (Auto) (0.00-0.30) K/uL Abs Immat Gran (auto) (0.00-0.30) K/uL D-Dimer Quant (PE/DVT) 14.99 H (0.00-0.50) ug/ml Sodium 136 (135-149) mmol/L Potassium 3.3 L (3.6-5.1) mmol/L Chloride 107 (96-114) mmol/L Carbon Dioxide 22 (20-32) mmol/L BUN 9 (5-24) mg/dL Creatinine 0.8 (0.5-1.5) mg/dL Estimated Creat Clear 106.56 Estimated GFR 104 ml/min Glucose 112 (60-115) mg/dL Calcium 8.3 L (8.4-10.6) mg/dL Total Bilirubin 0.3 (0.1-1.5) mg/dL AST 21 (12-35) U/L ALT 15 (4-35) U/L Alkaline Phosphatase 113 (40-150) U/L Total Protein 6.4 (6.0-8.3) g/dL Albumin 3.6 (3.3-5.0) g/dL Urine Color (Yellow) Urine Appearance (Clear) Urine pH (5.0-8.5) Ur Specific [place] (1.000-1.030) Urine Protein (Negative) Urine Glucose (UA) (Negative) Urine Ketones (Negative) Urine Blood (Negative) Urine Nitrite (Negative) Urine Bilirubin (Negative) Urine Urobilinogen (0.2-1.0) Ur Leukocyte Esterase (Negative) Urine RBC (0-2) Urine WBC (0-5) Urine WBC Clumps (None) Ur Squamous Epith Cells (None-Few) Amorphous Sediment (None) Urine Bacteria (None) SARS-CoV-2 (PCR) (Negative) Influenza Type A (PCR) (Negative) Influenza Type B (PCR) (Negative) RSV (PCR) (Negative) Imaging Data CT scan - chest: Attestation: I have reviewed the pertinent imaging results. Radiologist's impression: Impression: 1. No evidence of pulmonary embolism. 2. No etiology identified for patient`s shortness of breath. Discharge Plan Discharge Clinical Impression: Fever of unknown origin following delivery, Patient Disposition: Home, Self-Care Condition: Stable Instructions: Endometritis (ED) Additional Instructions: Thank you for choosing [facility]. We plan to treat with antibiotics for potential endometritis with fever without obvious etiology. You should aggressively treat symptoms with: rest, increased fluids, and Ibuprofen and Tylenol as needed. You should eat and drink to ensure adequate intake. The patient is asked to return if developing worsening abdominal distress, inability to eat or drink, decreased urine output, or other new/worsening symptoms develop. Additional discussion regarding the course of the illness, as well as helpful treatments, including use of a vaporizer/humidifier, steamed bathroom, or cool outdoor air. Arrange follow up visit if worsening or no improvement in symptoms in 1-2 weeks. The patient is asked to return if develops warning signs including fever >100.4 not responsive to medication, respiratory distress, lethargy, failure to hydrate with PO intake, or decreased urine output. Your care today was on an emergency basis and is not intended to be a substitute for on-going care with your primary physician. I recommend calling primary care for follow-up in the next 5-7 days for follow-up as needed and to review any labs, testing, or imaging you have had in the Emergency Department. If new or worsening symptoms develop or you have any concerns in the meantime, please call your primary care clinic or return to the ER for re-evaluation. Prescriptions: New clindamycin HCl 300 mg capsule 300 mg PO Q8H Qty: 15 0RF No Action prenat.vits,barbara,[id number] Tablet 1 tab PO QDAY epinephrine [EpiPen] 0.3 mg/0.3 mL auto-injector 0.3 mg IM .As Needed as needed PRN acetaminophen 500 mg Tablet 1,000 mg PO Q6H PRN (Reason: pain refractory to ibuprofen) Qty: 1 0RF ibuprofen 600 mg Tablet 600 mg PO Q6H PRNQty: 1 0RF Lanolin (HPA) 100 % Cream 1 applic topical Q1H PRNQty: 7 0RF pramoxine 1 % Foam 1 applic topical QID PRNQty: 15 0RF Follow Up/Referrals: Adelaide Dewey MD [Primary Care Provider] - Stand Alone Forms: [employer] Info Instructions
[2022-03-31 15:07] LABS: Appearance Urine Clear (Clear); Bilirubin Urine Negative (Negative); Blood Urine 3+ (Negative); Color Urine Yellow (Yellow); Glucose Urine Negative (Negative); Ketones Urine Negative (Negative); Leukocyte Esterase Urine 1+ (Negative); Nitrite Urine Negative (Negative); Protein Urine Negative (Negative); Urobilinogen Urine 0.2 (0.2-1.0)
[2022-03-31 15:16] LABS: PCR FLU A Negative PCR FLU A (Negative); PCR FLU B Negative PCR FLU B (Negative); PCR RSV Negative PCR RSV (Negative)
[2022-03-31 15:17] LABS: Amorphous Sediment Urine Few; Bacteria Urine Few; RBC Urine 0-2 (0-2); WBC Clumps Urine Few
[2022-03-31 15:18] LABS: D Dimer Quantitative* 14.99 ug/ml (0.00-0.50)
[2022-03-31 15:24] LABS: SARS PCR* Negative SARS-CoV-2 (Negative)
[2022-03-31 15:31] LABS: Slide Review Reflex No
--- NOTE | 2022-03-31 15:48 | CRLHL7_ITS ---
For Patients: As a result of the Century Cures Act, medical imaging exams and procedure reports are released immediately into your electronic medical record. You may view this report before your referring provider. If you have questions, please contact your health care provider. Indication: Shortness of breath, , 9 days Technique: Contrast enhanced CT of the chest, CT PE protocol, Isovue 370, 95 cc IV Please note that all CT scans at this facility use dose modulation, iterative reconstruction, and/or weight-based dosing when appropriate to reduce radiation dose to as low as reasonably achievable. Comparison: None Findings: Neck base, thyroid, central airways, esophagus and upper abdomen unremarkable. Normal heart size. No pericardial effusion. No significant coronary artery calcifications. No pulmonary artery filling defects to suggest acute pulmonary embolism. No lymphadenopathy. Dense breast tissue without focal abnormality. No pulmonary or pleural abnormality. No acute osseous abnormality. Impression: 1. No evidence of pulmonary embolism. 2. No etiology identified for patient`s shortness of breath. Please note that all CT scans at this facility use dose modulation, iterative reconstruction, and/or weight-based dosing when appropriate to reduce radiation dose to as low as reasonably achievable. Dictated by David Corrigan MD @ 03/31/2022 4:36:54 PM (Electronically Signed)
--- NOTE | 2022-03-31 17:09 | ED.NURSE ---
RX called in to [facility] [place] as patient's preferred pharmacy is closed until Saturday.
== END 2022-03-31 17:10 | disposition home or self-care (01) ==
PROVIDERS: Emergency Provider Family Medicine; PCP Family Medicine
DX: O86.4 Pyrexia of unknown origin following delivery (principal)
CPT/HCPCS: 36415; 71260; 80053; 81003; 81015; 85025; 85379; 87086; 87184; 87502; 87634; 87635; 99284; A9270; Q9967